=== PATIENT | male | born 1970 | race Caucasian/White ===

== ENCOUNTER → 2016-12-03 | Outpatient (CLI) | payer BC ==
[2016-12-03 10:01] LABS: ALT/SGPT 30 U/L (12-78); AST/SGOT 15 U/L (15-37); BLOOD UREA NITROGEN 15 mg/dl (7-18); BUN/CREATININE RATIO 14.8 (10-20); CALCIUM 8.4 mg/dl (8.5-10.1); CARBON DIOXIDE 26 mmol/L (21-32); CHLORIDE 106 mmol/L (98-107); GLUCOSE 92 mg/dl (70-99); POTASSIUM 4.3 mmol/L (3.5-5.1); SODIUM 141 mmol/L (136-145)
[2016-12-03 10:06] LABS: ALB/GLOB RATIO 1.4 (0.9-2); ALKALINE PHOSPHATASE 45 U/L (45-117); CHOLESTEROL 144 mg/dl (0-200); CHOLESTEROL/HDL RATIO 3.7; FERRITIN 129.7 ng/ml (8.0-388.0); HDL CHOLESTEROL 39 mg/dl; LDL CHOLESTEROL CALCULATED 80 mg/dl; TRIGLYCERIDES 125 mg/dl (0-150); VERY LOW DENSITY LIPOPROT CALC 25 mg/dl
[2016-12-03 10:33] LABS: HEMATOCRIT 41.5 % (42-52); MEAN CELL VOLUME 89.4 fL (80-100); MEAN CORPUSCULAR HEMOGLOBIN 33.2 pg (25-34); MEAN CORPUSCULAR HGB CONC 37.1 g/dl (32-36); MEAN PLATELET VOLUME 9.3 fL (7.4-10.4); PLATELET COUNT 195 K/uL (130-400); RED BLOOD COUNT 4.64 M/uL (4.7-6.1); WHITE BLOOD COUNT 4.77 K/uL (4.8-10.8)
[2016-12-03 10:35] LABS: BASO % 0.4 %; BASO ABS # 0.02 K/uL (0-0.2); COMPLETE YES; EOS % 2.9 %; IG% 0.2 %; LYMPH % 37.3 %; LYMPH ABS # 1.78 K/uL (1.2-3.4); MONO % 10.3 %; NEUT % 48.9 %
== END | disposition home or self-care (01) ==
LOC: C.LAB 08:16
PROVIDERS: ATTEND Nurse Practitioner Adult Health
DX: D64.9 Anemia, unspecified (principal); Z13.220 Encounter for screening for lipoid disorders

== ENCOUNTER → 2018-01-02 | Outpatient (CLI) | payer BC ==
[2018-01-02 14:37] LABS: BASO % 0.2 %; BASO ABS # 0.01 K/uL (0-0.2); EOS % 1.1 %; EOS ABS # 0.05 K/uL (0-0.5); HEMATOCRIT 40.5 % (42-52); HEMOGLOBIN 15.2 g/dL (14.0-18.0); LYMPH % 31.2 %; LYMPH ABS # 1.47 K/uL (1.2-3.4); MEAN CORPUSCULAR HEMOGLOBIN 33.8 pg (25-34); MEAN CORPUSCULAR HGB CONC 37.5 g/dl (32-36); MEAN PLATELET VOLUME 9.4 fL (7.4-10.4); MONO % 6.4 %; NEUT % 61.1 %; NEUT ABS # 2.88 K/uL (1.4-6.5); PLATELET COUNT 180 K/uL (130-400); RED CELL DISTRIBUTION WIDTH CV 12.1 % (11.5-14.5); RED CELL DISTRIBUTION WIDTH SD 39.4 fL (36.4-46.3); WHITE BLOOD COUNT 4.71 K/uL (4.8-10.8)
[2018-01-02 15:11] LABS: ALBUMIN 4.1 gm/dl (3.4-5.0); ALT/SGPT 26 U/L (12-78); AST/SGOT 20 U/L (15-37); BLOOD UREA NITROGEN 11 mg/dl (7-18); CARBON DIOXIDE 29 mmol/L (21-32); CHOLESTEROL 203 mg/dl (0-200); CREATININE 0.96 mg/dl (0.60-1.40); GLUCOSE 96 mg/dl (70-99); SODIUM 137 mmol/L (136-145)
[2018-01-02 15:14] LABS: ALKALINE PHOSPHATASE 47 U/L (45-117); LDL CHOLESTEROL CALCULATED 116 mg/dl; TOTAL PROTEIN 7.6 gm/dl (6.4-8.2); TRANSFERRIN 268 mg/dl (200-360)
== END | disposition home or self-care (01) ==
LOC: C.LAB1850 12:50
PROVIDERS: ATTEND Nurse Practitioner Family
DX: R79.0 Abnormal level of blood mineral (principal); E78.00 Pure hypercholesterolemia, unspecified

== ENCOUNTER → 2018-01-20 | Outpatient (CLI) | payer BC ==
[~2018-01-20] MED LIST: FLUT0.15 NAE; PROM25TA9 PO; PRT/20 PO; RANI150T85 PO; URX/10 PO
--- NOTE | 2018-01-20 16:21 | DIAGNOSTIC IMAGING REPORT ---
KUB CLINICAL HISTORY: 47 years-old Male presenting with R10.9 Abdominal [id number]. TECHNIQUE: Single supine view of the abdomen was obtained. COMPARISON: None. FINDINGS: Nonobstructive bowel gas pattern. No gross pneumoperitoneum. Allowing for bowel gas and stool, no calcifications to suggest nephrolithiasis. Phleboliths noted. Osseous structures normal. Lung bases clear. IMPRESSION: 1. No acute intra-abdominal pathology. Electronically signed by: Eric De La Rosa M.D. 01/20/2018 4:20 PM Dictated Date/Time: 01/20/2018 4:19 PM
[2018-01-20 16:31] LABS: BASO % 0.1 %; BASO ABS # 0.01 K/uL (0-0.2); EOS % 0.8 %; EOS ABS # 0.06 K/uL (0-0.5); HEMATOCRIT 40.3 % (42-52); HEMOGLOBIN 15.2 g/dL (14.0-18.0); IG# 0.01 K/uL (0.00-0.02); LYMPH % 24.6 %; LYMPH ABS # 1.74 K/uL (1.2-3.4); MEAN CELL VOLUME 88.8 fL (80-100); MEAN CORPUSCULAR HEMOGLOBIN 33.5 pg (25-34); MEAN CORPUSCULAR HGB CONC 37.7 g/dl (32-36); MONO % 7.1 %; NEUT % 67.3 %; NEUT ABS # 4.74 K/uL (1.4-6.5); PLATELET COUNT 222 K/uL (130-400); RED CELL DISTRIBUTION WIDTH CV 12.3 % (11.5-14.5); RED CELL DISTRIBUTION WIDTH SD 39.4 fL (36.4-46.3); WHITE BLOOD COUNT 7.06 K/uL (4.8-10.8)
[2018-01-20 17:08] LABS: ALBUMIN 4.3 gm/dl (3.4-5.0); AST/SGOT 14 U/L (15-37); BLOOD UREA NITROGEN 11 mg/dl (7-18); CALCIUM 9.1 mg/dl (8.5-10.1); CARBON DIOXIDE 30 mmol/L (21-32); CREATININE 1.07 mg/dl (0.60-1.40); GLUCOSE 90 mg/dl (70-99); LIPASE 153 U/L (73-393); POTASSIUM 3.5 mmol/L (3.5-5.1); SODIUM 134 mmol/L (136-145)
[2018-01-20 17:11] LABS: ALKALINE PHOSPHATASE 53 U/L (45-117); ALT/SGPT 28 U/L (12-78); TOTAL PROTEIN 7.7 gm/dl (6.4-8.2)
== END | disposition home or self-care (01) ==
LOC: C.RAD1850 15:41
PROVIDERS: ATTEND Nurse Practitioner Family
DX: R10.9 Unspecified abdominal pain (principal)

== ENCOUNTER 2018-01-21 09:33 | Emergency (ER) | payer BC ==
[~2018-01-21] VITALS: Ht 180.3 cm; Wt 85.8 kg
[2018-01-21 09:48] VITALS: TEMP 36.7; Ht 180.3 cm; Wt 85.8 kg
[2018-01-21] MEDS ORDERED: SODIUM CHLORIDE 0.9% 1000ML 1,000 ML IV STA (10:01)
[2018-01-21] MEDS ORDERED: ONDANSETRON INJ 2 MG/ML 2 ML VIAL IV STA (10:01)
[2018-01-21] MEDS ORDERED: FAMOTIDINE 20MG/5ML IV PUSH IV STA (10:01)
[2018-01-21] MEDS ORDERED: KETOROLAC TROMETHAMINE 30 MG/ML VIAL IV STA (10:01)
--- NOTE | 2018-01-21 10:12 | EMERGENCY ROOM VISIT NOTE ---
History Report prepared by Alphnose: Oren Coley Under the Supervision of: Dr. Stephen Jerez M.D. First contact with patient: 09:57 Chief Complaint: ABDOMINAL PAIN Stated Complaint: DIZZINESS,PAINFUL STOMACH Nursing Triage Summary: Mid Abdominal pain x5 days. Vomiting today. Saw PCP, dx with gastritis, sent for abd xray and bloodwork which he had done yesterday but has not received results yet. Today sx worse, pt "cannot handle the pain" History of Present Illness The patient is a 47 year old male who presents to the Emergency Room with complaints of worsening, severe abdominal pain beginning 5 days ago. The patient reports going out to each lunch 5 days ago after which he developed abdominal pain. The patient notes that his pain has been coming and going since Tuesday, but has been continuous from 0330 this morning. The patient notes waking up at 0330 today feeling nauseas after which he vomited. He reports that his nausea has persisted throughout the day today. The patient states that his abdomen has been extremely tender and rates his current overall pain at a 9/10. The patient reports that his pain is slightly alleviated upon lying down. He denies any history of abdominal surgery or gallbladder issues, taking any new medications. The patient also denies experiencing any fevers, but notes experiencing shakes and sweating episodes 4 days ago. Source of History: patient Onset: 5 days ago Position: abdomen (RUQ) Symptom Intensity: severe (9/10) Timing: worsening Modifying Factors (Relieving): rest Associated Symptoms: + diaphoresis (resolved ), + nausea, + vomiting, No fevers Note: Associated Symptoms: Tender Abdomen, Shakes Denies: History of abdominal surgery, gallbladder complications, or taking any new medications. Review of Systems See HPI for pertinent positives & negatives. A total of 10 systems reviewed and were otherwise negative. Past Medical & Surgical No history of abdominal surgeries. Family History Patient reports no known family medical history. Social History Smoking Status: Former Smoker Alcohol Use: occasionally Drug Use: none Marital Status: Occupation Status: employed Current/Historical Medications Scheduled Alfuzosin HCl (Alfuzosin HCl ER), 10 MG PO DAILY Fluticasone Propionate (Nasal) (Flonase Allergy Relief), 2 SPRAYS ELIZABETH UD Pantoprazole (Protonix), 20 MG PO DAILY Ranitidine (Zantac), 150 MG PO BID Scheduled PRN Promethazine Hcl (Phenergan), 25 MG PO Q6H PRN for Nausea Allergies Coded Allergies: Penicillins (Unverified Allergy, Mild, CHILD, 01/21/18) Physical Exam Vital Signs Date Time Temp Pulse Resp B/P (MAP) Pulse Ox O2 Delivery O2 Flow Rate FiO2 01/21/18 12:40 57 15 137/80 98 Room Air 01/21/18 11:41 62 16 141/93 100 Room Air 01/21/18 09:48 36.7 73 18 151/107 98 Room Air Physical Exam GENERAL: Patient is in no acute distress. HEENT: No acute trauma, normocephalic atraumatic, mucous membranes moist, no nasal congestion, no scleral icterus. NECK: No stridor, no adenopathy, no meningismus, trachea is midline. LUNGS: Clear to auscultation bilaterally, no wheeze, no rhonchi, breath sounds equal. HEART: Without murmurs gallops or rubs, regular rate and rhythm. ABDOMEN: Tender in epigastrium and right upper quadrant, bowel sounds positive, no hernias, no peritonitis. EXTREMITIES: No cyanosis or edema, full range of motion of all the joints without pain or difficulty, no signs for acute trauma. NEUROLOGIC: Oriented x 3, no acute motor or sensory deficits, no focal weakness. SKIN: No rash, no jaundice, no diaphoresis. Medical Decision & Procedures ER Provider Diagnostic Interpretation: Radiology results as stated below per my review and radiologist interpretation: GALLBLADDER-ABD LIMITED CLINICAL HISTORY: 47 years-old Male presenting with ABDOMINAL PAIN/GI. TECHNIQUE: Real-time grayscale and limited color Doppler ultrasound imaging of the abdomen limited to the right upper quadrant was performed. COMPARISON: None. FINDINGS: Pancreas: Visualized portions of the pancreatic head and body normal. Liver: Normal echogenicity and echotexture. Hyperechogenic lesions in the liver, the largest measuring 1.4 cm. Main portal vein patent with normal directional flow. Biliary: No intrahepatic biliary ductal dilatation. Common bile duct measures up to 3 mm in diameter. Gallbladder: No evidence of gallstones, gallbladder wall thickening, gallbladder distention, or pericholecystic fluid or inflammatory change. Right kidney: Normal in appearance. No hydronephrosis. Ascites: None. Other: None. IMPRESSION: 1. No cholelithiasis or biliary ductal dilatation. 2. Multiple hyperechogenic lesions in the liver, indeterminate but likely benign hemangiomas. In the absence of a history of malignancy or known hepatocellular risk factors, no further evaluation would be indicated. Electronically signed by: Eric De La Rosa M.D. 01/21/2018 11:14 AM Dictated Date/Time: 01/21/2018 11:09 AM ABD/PELVIS IV CONTRAST ONLY CLINICAL HISTORY: 47 years-old Male presenting with ABD PAIN, POSS APPY, abdominal pain for 5 days. TECHNIQUE: Multidetector CT of the abdomen and pelvis was performed after the administration of intravenous contrast. IV contrast: 118 mL of Optiray 320. A dose lowering technique was used consistent with the principles of ALARA (as low as reasonably achievable). COMPARISON: Ultrasound of the right upper quadrant from 01/21/2018. CT DOSE (mGy.cm): The estimated cumulative dose is 355.81 mGy.cm. 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 Lung bases: Minimal basilar opacities, likely atelectasis. Normal heart size. No pericardial or pleural effusion. Liver: Normal morphology. No liver lesion. Patent hepatic vasculature. Biliary: No intrahepatic or extrahepatic biliary ductal dilatation. Normal gallbladder. Pancreas: Normal. Spleen: Normal. Adrenal glands: Normal. Kidneys and ureters: Normal. No hydronephrosis. Bladder: Normal. Pelvic organs: Prostate and seminal vesicles normal. Bowel: Normal appendix. No bowel obstruction. Distal small bowel contains feces likely indicating delayed transit. Peritoneal cavity: No free fluid or intraperitoneal gas. Lymph nodes: No enlarged lymph nodes in the abdomen or pelvis. Vasculature: Aorta and IVC patent and normal in caliber. Abdominal wall: Normal. Musculoskeletal: Normal. IMPRESSION: 1. No acute intra-abdominal pathology. Electronically signed by: Eric De La Rosa M.D. 01/21/2018 12:06 PM Dictated Date/Time: 01/21/2018 12:01 PM Laboratory Results 01/21/18 10:15 Red Blood Count 4.88, Mean Corpuscular Volume 89.5, Mean Corpuscular Hemoglobin 33.4, Mean Corpuscular Hemoglobin Concent 37.3, Mean Platelet Volume 9.2, Neutrophils (%) (Auto) 81.8, Lymphocytes (%) (Auto) 13.7, Monocytes (%) (Auto) 3.9, Eosinophils (%) (Auto) 0.4, Basophils (%) (Auto) 0.1, Neutrophils # (Auto) 6.56, Lymphocytes # (Auto) 1.10, Monocytes # (Auto) 0.31, Eosinophils # (Auto) 0.03, Basophils # (Auto) 0.01 01/21/18 10:15 Test 01/21/18 10:15 White Blood Count 8.02 K/uL (4.8-10.8) Red Blood Count 4.88 M/uL (4.7-6.1) Hemoglobin 16.3 g/dL (14.0-18.0) Hematocrit 43.7 % (42-52) Mean Corpuscular Volume 89.5 fL (80-100) Mean Corpuscular Hemoglobin 33.4 pg (25-34) Mean Corpuscular Hemoglobin Concent 37.3 g/dl (32-36) Platelet Count 244 K/uL (130-400) Mean Platelet Volume 9.2 fL (7.4-10.4) Neutrophils (%) (Auto) 81.8 % Lymphocytes (%) (Auto) 13.7 % Monocytes (%) (Auto) 3.9 % Eosinophils (%) (Auto) 0.4 % Basophils (%) (Auto) 0.1 % Neutrophils # (Auto) 6.56 K/uL (1.4-6.5) Lymphocytes # (Auto) 1.10 K/uL (1.2-3.4) Monocytes # (Auto) 0.31 K/uL (0.11-0.59) Eosinophils # (Auto) 0.03 K/uL (0-0.5) Basophils # (Auto) 0.01 K/uL (0-0.2) RDW Standard Deviation 40.1 fL (36.4-46.3) RDW Coefficient of Variation 12.3 % (11.5-14.5) Immature Granulocyte % (Auto) 0.1 % Immature Granulocyte # (Auto) 0.01 K/uL (0.00-0.02) Anion Gap 6.0 mmol/L (3-11) Est Creatinine Clear Calc Drug Dose 85.6 ml/min Estimated GFR () 87.7 Estimated GFR (Non- 75.6 BUN/Creatinine Ratio 8.2 (10-20) Calcium Level 9.0 mg/dl (8.5-10.1) Total Bilirubin 1.2 mg/dl (0.2-1) Direct Bilirubin 0.2 mg/dl (0-0.2) Aspartate Amino Transf (AST/SGOT) 18 U/L (15-37) Alanine Aminotransferase (ALT/SGPT) 28 U/L (12-78) Alkaline Phosphatase 53 U/L (45-117) Troponin I < 0.015 ng/ml (0-0.045) Total Protein 7.8 gm/dl (6.4-8.2) Albumin 4.4 gm/dl (3.4-5.0) Lipase 122 U/L (73-393) Laboratory results reviewed by me. Medications Administered Medications (Trade) Dose Ordered Sig/Jerman Route Start Time Stop Time Status Last Admin Dose Admin Ondansetron HCl (Zofran Inj) 4 mg NOW STAT IV 01/21/18 10:01 01/21/18 10:07 DC 01/21/18 10:27 4 MG Sodium Chloride 1,000 ml @ 999 mls/hr Q1H1M STAT IV 01/21/18 10:01 01/21/18 11:01 DC 01/21/18 10:20 999 MLS/HR Ketorolac Tromethamine (Toradol Inj) 30 mg NOW STAT IV 01/21/18 10:01 01/21/18 10:08 DC 01/21/18 10:01 30 MG Famotidine (Pepcid 20mg Iv Push) 20 mg ONE STAT IV 01/21/18 10:01 01/21/18 10:08 DC 01/21/18 10:27 20 MG Pantoprazole Sodium (Protonix Tab) 40 mg NOW STAT PO 01/21/18 12:25 01/21/18 12:26 DC 01/21/18 12:37 40 MG ED Course 1000: The patient was evaluated in room B10. A complete history and physical exam was performed. 1001: Ordered Famotidine 20mg IV, Toradol Inj 30mg IV, Sodium Chloride 1000 ml @ 999 mls/hr IV, and Zofran Inj 4mg IV 1119: I re-evaluated the patient and updated him regarding his current treatment plan. He will go for a CT of his abdomen. 1225: Ordered Protonix Tab 40mg PO. 1229: Reevaluated the patient. Discussed results and discharge instructions: He verbalized understanding and agreement. The patient is ready for discharge. Medical Decision The patient is a 47 year old male who presents to the ED with complaints of abdominal pain. Differential diagnoses considered include biliary colic, acute cholecystitis, pancreatitis, gastritis or ulcer, diverticulitis, appendicitis, musculoskeletal pain, hernia. There is no leukocytosis or concerning anemia. No significant electrolyte abnormality, kidney failure or hepatitis. There was no pancreatitis. Gallbladder ultrasound did not show evidence for acute cholecystitis, no gallstones. EKG showed a normal sinus rhythm, no acute ischemia. Cardiac enzyme testing 1 was not consistent with acute cardiac injury. Abdominal and pelvis CT does not show any acute surgical process. No appendicitis, no bowel obstruction or abscess. The patient was given IV Pepcid, IV Toradol, IV Zofran and IV saline. He was given oral Protonix. Patient presents with epigastric and right upper quadrant abdominal pain. His workup is reassuring and relatively benign. He may have an ulcer or gastritis. He is being discharged on Protonix and Zantac with family doctor and possibly GI follow-up. If worsening, he can return. Medication Reconcilliation Current Medication List: was personally reviewed by me Blood Pressure Screening Patient's blood pressure: Elevated blood pressure Blood pressure disposition: Elevated BP felt to be situational Impression Primary Impression: Epigastric abdominal pain Scribe Attestation The scribe's documentation has been prepared under my direction and personally reviewed by me in its entirety. I confirm that the note above accurately reflects all work, treatment, procedures, and medical decision making performed by me. Departure Information Dispostion Home / Self-Care Prescriptions Promethazine Hcl (Phenergan) 25 Mg Tab 25 MG PO Q6H Y for Nausea, #12 TAB Prov: Stephen Jerez M.D. 01/21/18 Pantoprazole (Protonix) 20 Mg Tab 20 MG PO DAILY, #30 TAB 3 Refills Prov: Stephen Jerez M.D. 01/21/18 Ranitidine (Zantac) 150 Mg Tab 150 MG PO BID for 14 Days, #28 TAB Prov: Stephen Jerez M.D. 01/21/18 Referrals José Miguel Romo III, CRNP (PCP) Forms Call Back Authorization, HOME CARE DOCUMENTATION FORM, IMPORTANT VISIT INFORMATION Patient Instructions My [facility] Additional Instructions protonix daily for 1 month zantac 2x per day for 2 weeks phenergan 1 tab every 6 hours for nausea as needed bland diet---crackers, soup, toast, gatorade, rice see allan nolasco--call tuesday for an appt--you may need to se a GI doctor for a scope return for fever or worsening symptoms
[2018-01-21] MEDS ORDERED: FLUT0.15 NAE (10:38)
[2018-01-21 10:43] LABS: BASO % 0.1 %; BASO ABS # 0.01 K/uL (0-0.2); EOS % 0.4 %; EOS ABS # 0.03 K/uL (0-0.5); HEMATOCRIT 43.7 % (42-52); HEMOGLOBIN 16.3 g/dL (14.0-18.0); IG# 0.01 K/uL (0.00-0.02); LYMPH % 13.7 %; MEAN CELL VOLUME 89.5 fL (80-100); MEAN CORPUSCULAR HEMOGLOBIN 33.4 pg (25-34); MEAN CORPUSCULAR HGB CONC 37.3 g/dl (32-36); MEAN PLATELET VOLUME 9.2 fL (7.4-10.4); MONO % 3.9 %; MONO ABS # 0.31 K/uL (0.11-0.59); NEUT % 81.8 %; NEUT ABS # 6.56 K/uL (1.4-6.5); PLATELET COUNT 244 K/uL (130-400); RED CELL DISTRIBUTION WIDTH CV 12.3 % (11.5-14.5); RED CELL DISTRIBUTION WIDTH SD 40.1 fL (36.4-46.3); WHITE BLOOD COUNT 8.02 K/uL (4.8-10.8)
[2018-01-21] MEDS ORDERED: URX/10 PO (10:46)
[2018-01-21 10:50] LABS: ALBUMIN 4.4 gm/dl (3.4-5.0); ALKALINE PHOSPHATASE 53 U/L (45-117); ALT/SGPT 28 U/L (12-78); AST/SGOT 18 U/L (15-37); BLOOD UREA NITROGEN 10 mg/dl (7-18); CARBON DIOXIDE 28 mmol/L (21-32); CREATININE 1.16 mg/dl (0.60-1.40); GLUCOSE 91 mg/dl (70-99); LIPASE 122 U/L (73-393); POTASSIUM 4.3 mmol/L (3.5-5.1); SODIUM 137 mmol/L (136-145); TOTAL PROTEIN 7.8 gm/dl (6.4-8.2)
--- NOTE | 2018-01-21 11:15 | DIAGNOSTIC IMAGING REPORT ---
GALLBLADDER-ABD LIMITED CLINICAL HISTORY: 47 years-old Male presenting with ABDOMINAL PAIN/GI. TECHNIQUE: Real-time grayscale and limited color Doppler ultrasound imaging of the abdomen limited to the right upper quadrant was performed. COMPARISON: None. FINDINGS: Pancreas: Visualized portions of the pancreatic head and body normal. Liver: Normal echogenicity and echotexture. Hyperechogenic lesions in the liver, the largest measuring 1.4 cm. Main portal vein patent with normal directional flow. Biliary: No intrahepatic biliary ductal dilatation. Common bile duct measures up to 3 mm in diameter. Gallbladder: No evidence of gallstones, gallbladder wall thickening, gallbladder distention, or pericholecystic fluid or inflammatory change. Right kidney: Normal in appearance. No hydronephrosis. Ascites: None. Other: None. IMPRESSION: 1. No cholelithiasis or biliary ductal dilatation. 2. Multiple hyperechogenic lesions in the liver, indeterminate but likely benign hemangiomas. In the absence of a history of malignancy or known hepatocellular risk factors, no further evaluation would be indicated. Electronically signed by: Eric De La Rosa M.D. 01/21/2018 11:14 AM Dictated Date/Time: 01/21/2018 11:09 AM
[2018-01-21] MEDS ORDERED: OPTIRAY 320 IV PRN (11:30)
--- NOTE | 2018-01-21 12:07 | DIAGNOSTIC IMAGING REPORT ---
ABD/PELVIS IV CONTRAST ONLY CLINICAL HISTORY: 47 years-old Male presenting with ABD PAIN, POSS APPY, abdominal pain for 5 days. TECHNIQUE: Multidetector CT of the abdomen and pelvis was performed after the administration of intravenous contrast. IV contrast: 118 mL of Optiray 320. A dose lowering technique was used consistent with the principles of ALARA (as low as reasonably achievable). COMPARISON: Ultrasound of the right upper quadrant from 01/21/2018. CT DOSE (mGy.cm): The estimated cumulative dose is 355.81 mGy.cm. 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 Lung bases: Minimal basilar opacities, likely atelectasis. Normal heart size. No pericardial or pleural effusion. Liver: Normal morphology. No liver lesion. Patent hepatic vasculature. Biliary: No intrahepatic or extrahepatic biliary ductal dilatation. Normal gallbladder. Pancreas: Normal. Spleen: Normal. Adrenal glands: Normal. Kidneys and ureters: Normal. No hydronephrosis. Bladder: Normal. Pelvic organs: Prostate and seminal vesicles normal. Bowel: Normal appendix. No bowel obstruction. Distal small bowel contains feces likely indicating delayed transit. Peritoneal cavity: No free fluid or intraperitoneal gas. Lymph nodes: No enlarged lymph nodes in the abdomen or pelvis. Vasculature: Aorta and IVC patent and normal in caliber. Abdominal wall: Normal. Musculoskeletal: Normal. IMPRESSION: 1. No acute intra-abdominal pathology. Electronically signed by: Eric De La Rosa M.D. 01/21/2018 12:06 PM Dictated Date/Time: 01/21/2018 12:01 PM
[2018-01-21] MEDS ORDERED: PANTOprazole SOD 40 MG TAB PO STA (12:25)
[2018-01-21] MEDS ORDERED: PROM25TA9 PO (12:31)
[2018-01-21] MEDS ORDERED: PRT/20 PO (12:31)
[2018-01-21] MEDS ORDERED: RANI150T85 PO (12:31)
[2018-01-21 12:40] VITALS: BP 137/80; PULSE 57; O2SAT 98
== END 2018-01-21 12:49 | disposition home or self-care (01) ==
LOC: C.EDB 09:34
DX: R10.13 Epigastric pain (principal); Z87.891 Personal history of nicotine dependence; Z88.0 Allergy status to penicillin